=== PATIENT | female | born 1965 | race Caucasian/White ===

== ENCOUNTER 2021-01-19 08:47 | Day surgery (SDC) | payer OTHER ==
[2021-01-17 15:02] VITALS: BMI 26.9
[~2021-01-19 08:47] MED LIST: LIDOCAINE 1% (10MG/ML) FOR IV START INTRADERMA PRN
[2021-01-19 09:59] VITALS: RESP 16; TEMP 98.9
[2021-01-19] MEDS: LACTATED RINGERS 1,000 ML IV SCH ×2 (09:59→10:10)
[2021-01-19] MEDS ORDERED: PROPOFOL 10 MG/ML 20 ML VIAL IV ONE (10:14)
--- NOTE | 2021-01-19 10:15 | P.GSHP ---
History of Present Illness H&P Date: 01/19/21 Chief Complaint: Screening colonoscopy This a 55-year-old female who presents today for screening colonoscopy. Patient denies any significant GI complaints. Past Medical History Past Medical History: GERD/Reflux, Mitral Valve Prolapse (MVP), Thyroid Disorder Additional Past Medical History / Comment(s): recent sinus infection- finished antibiotic, constipation, History of Any Multi-Drug Resistant Organisms: None Reported Additional Past Surgical History / Comment(s): oral surgery, donated bone marrow Past Anesthesia/Blood Transfusion Reactions: Motion Sickness Smoking Status: Never smoker - Past Family History Sister(s) Family Medical History: Cancer Medications and Allergies Home Medications Medication Instructions Recorded Confirmed Type ALPRAZolam [Xanax] 0.5 mg PO BID 01/17/21 01/19/21 History Calcium,Mg,Zin,Vit D 1 tab PO DAILY 01/17/21 01/19/21 History Ergocalciferol [Vitamin D2 (1250 1,250 mcg PO Q14D 01/17/21 01/19/21 History Mcg = 22135 Iu)] Famotidine 20 mg PO HS 01/17/21 01/19/21 History Ibuprofen [Motrin] 600 mg PO TID PRN 01/17/21 01/19/21 History Levothyroxine Sodium [Synthroid] 75 mcg PO DAILY 01/17/21 01/19/21 History Allergies Allergy/AdvReac Type Severity Reaction Status Date / Time erythromycin base Allergy Rash/Hives Verified 01/19/21 09:49 Surgical - Exam Vital Signs Temp Pulse Resp BP Pulse Ox 98.9 F 66 16 134/65 98 01/19/21 09:57 01/19/21 09:57 01/19/21 09:57 01/19/21 09:57 01/19/21 09:57 - General well developed, well nourished, no distress - Eyes PERRL - ENT normal pinna - Neck no masses - Respiratory normal expansion - Cardiovascular Rhythm: regular - Abdomen Abdomen: soft, non tender Assessment and Plan Assessment: We'll perform screening colonoscopy
--- NOTE | 2021-01-19 10:33 | P.OP ---
Date of Procedure: 01/19/21 Preoperative Diagnosis: Screening colonoscopy Postoperative Diagnosis: Diverticulosis Procedure(s) Performed: Colonoscopy Anesthesia: MAC Surgeon: Alvaro Zeng Pathology: none sent Condition: stable Disposition: PACU Description of Procedure: The patient's placed on the endoscopy table in the lateral position. She received IV sedation. Digital rectal exam performed which revealed no abnormalities. Flexible colonoscope was then placed patient anus passed throughout the entire colon. The ileocecal valve was not seen clearly secondary to a large amount liquid stool. Scope was withdrawn. The right colon, transverse colon descending colon appeared normal. In the sigmoid colon there were scattered diverticula. Scope was then brought back the rectum this appeared normal. Scope was brought patient.
[2021-01-19 10:51] VITALS: BP 113/76; PULSE 57
== END 2021-01-19 11:05 | disposition home or self-care (01) ==
LOC: ORWHC2ENDO 08:47
PROVIDERS: ATTEND Surgery
DX: Z12.11 Encounter for screening for malignant neoplasm of colon (principal); K57.30 Diverticulosis of large intestine without perforation or abscess without bleeding; K21.9 Gastro-esophageal reflux disease without esophagitis; I34.1 Nonrheumatic mitral (valve) prolapse; E07.9 Disorder of thyroid, unspecified; Z86.19 Personal history of other infectious and parasitic diseases; Z87.19 Personal history of other diseases of the digestive system; Z98.890 Other specified postprocedural states; Z52.3 Bone marrow donor; Z87.898 Personal history of other specified conditions; Z79.899 Other long term (current) drug therapy; Z79.890 Hormone replacement therapy; Z88.1 Allergy status to other antibiotic agents; Z80.9 Family history of malignant neoplasm, unspecified
CPT/HCPCS: 81025; J2704; G0121